=== PATIENT | male | born 1990 | race Caucasian/White ===

== ENCOUNTER 2023-10-08 08:11 | Emergency (ER) | payer OTHER ==
--- NOTE | 2023-10-08 08:31 | ED ---
Lower Extremity Injury HPI - General Chief Complaint: Extremity Injury, Lower Stated Complaint: Foot Injury Time Seen by Provider: 10/08/23 08:20 Source: patient, RN notes reviewed Mode of arrival: wheelchair Limitations: no limitations - History of Present Illness Initial Comments: 33-year-old male with no significant past medical history presents to ED with chief complaint of right ankle pain. States that he was at work yesterday, and slipped off of a rail car roughly 1 foot. Patient states after fall he was slightly able to bear weight and his increase since yesterday evening. At time of fall patient denies dizziness, lightheadedness. Patient has taken Motrin at home, last dose yesterday evening. - Related Data Allergies Allergy/AdvReac Type Severity Reaction Status Date / Time No Known Allergies Allergy Verified 10/08/23 08:20 Review of Systems ROS Statement: Those systems with pertinent positive or pertinent negative responses have been documented in the HPI. ROS Other: All systems not noted in ROS Statement are negative. Past Medical History Past Medical History: No Reported History Past Surgical History: No Surgical Hx Reported Past Psychological History: No Psychological Hx Reported Smoking Status: Never smoker Past Alcohol Use History: None Reported Past Drug Use History: None Reported General Exam Limitations: no limitations General appearance: alert, in no apparent distress Head exam: Present: atraumatic, normocephalic, normal inspection Eye exam: Present: normal appearance, PERRL, EOMI. Absent: scleral icterus, con junctival injection, periorbital swelling ENT exam: Present: normal exam, mucous membranes moist Neck exam: Present: normal inspection. Absent: tenderness, meningismus, lymphadenopathy Respiratory exam: Present: normal lung sounds bilaterally. Absent: respiratory distress, wheezes, rales, rhonchi, stridor Cardiovascular Exam: Present: regular rate, normal rhythm, normal heart sounds. Absent: systolic murmur, diastolic murmur, rubs, gallop, clicks GI/Abdominal exam: Present: soft, normal bowel sounds. Absent: distended, tenderness, guarding, rebound, rigid Right Lower Leg exam: Present: normal inspection, full ROM Ankle exam: Present: tenderness, swelling, ecchymosis. Absent: full ROM (limited plantar flexion and dorsiflexion), crepitus, erythema Foot/Toe exam: Present: normal inspection, full ROM. Absent: tenderness, swelling Neurovascular tendon exam: Absent: no vascular compromise, pulse deficit, abnormal cap refill, motor deficit, sensory deficit Back exam: Present: normal inspection Neurological exam: Present: alert, oriented X3, CN II-XII intact Psychiatric exam: Present: normal affect, normal mood Skin exam: Present: warm, dry, intact, normal color. Absent: rash Course Vital Signs 10/08/23 08:17 Temperature 98.4 F Pulse Rate 91 Respiratory 18 Rate Blood Pressure 127/85 O2 Sat by Pulse 97 Oximetry Procedures - Orthopedic Splinting/Casting Injury #1 Side: right Lower Extremity Injury Location: short leg, ankle Lower Extremity Immobilizer: posterior splint, Mundo wrap, synthetic pre-padded splint Other Orthopedic Equipment: crutches Medical Decision Making - Medical Decision Making Was pt. sent in by a medical professional or institution (, [place], [facility], urgent care, hospital, or [facility]...) When possible be specific @ -No Did you speak to anyone other than the patient for history (EMS, parent, family, police, friend...)? What history was obtained from this source @ -No Did you review nursing and triage notes (agree or disagree)? Why? @ -I reviewed and agree with nursing and triage notes Were old charts reviewed (outside hosp., previous admission, EMS record, old EKG, old radiological studies, urgent care reports/EKG's, [facility] records)? Report findings @ -No old charts were reviewed Differential Diagnosis (chest pain, altered mental status, abdominal pain women, abdominal pain men, vaginal bleeding, weakness, fever, dyspnea, syncope, headache, dizziness, GI bleed, back pain, seizure, CVA, palpatations, mental health, musculoskeletal)? @ -Differential Musculoskeletal: Muscular strain, contusion, ligament sprain, fracture, arthritis, septic arthritis, bursitis, cellulitis, muscle spasm, nerve compression, DVT, arterial occlusion, herpes zoster, electrolyte abnormality, tumor.... This is not meant to be in all inclusive list EKG interpreted by me (3pts min.). @ -None X-rays interpreted by me (1pt min.). @ -X-ray of right ankle and foot revealed circumferential soft tissue swelling. With some bony densities along the dorsal aspect of the navicular bone. No acute osseous abnormality seen CT interpreted by me (1pt min.). @ -None done U/S interpreted by me (1pt. min.). @ -None done What testing was considered but not performed or refused? (CT, X-rays, U/S, labs)? Why? @ -None What meds were considered but not given or refused? Why? @ -None Did you discuss the management of the patient with other professionals (celena caldwell i.e. , [place], [facility], lab, RT, psych nurse, medical social worker, manufacturing worker, teacher, employment security officer, wrapper caser)? Give summary @ -No Was smoking cessation discussed for >3mins.? @ -No Was critical care preformed (if so, how long)? @ -No Were there social determinants of health that impacted care today? How? (Homelessness, low income, unemployed, alcoholism, drug addiction, transportation, low edu. Level, literacy, decrease access to med. care, [facility]pc, rehab)? @ -No Was there de-escalation of care discussed even if they declined (Discuss DNR or withdrawal of care, Hospice)? DNR status @ -No What co-morbidities impacted this encounter? (DM, HTN, Smoking, COPD, CAD, Cancer, CVA, ARF, Chemo, Hep., AIDS, mental health diagnosis, sleep apnea, morbid obesity)? @ -None Was patient admitted / discharged? Hospital course, mention meds given and route, prescriptions, significant lab abnormalities, going to OR and other pertinent info. @ -33-year-old male presents with chief complaint of right ankle pain. Right ankle and foot x-ray circumferential soft tissue swelling, bony densities along the dorsal aspect of the navicular bone, No acute osseous abnormality seen. The patient's point tenderness across the area of concern on x-ray, patient was placed in a right ankle short leg splint. Patient was given orthopedic referral for follow-up, and instructed to call office on Tuesday for an appointment. Patient to continue with rest at home, rotate Tylenol and Motrin, ice area, and elevate affected ankle. Undiagnosed new problem with uncertain prognosis? @ -No Drug Therapy requiring intensive monitoring for toxicity (Heparin, Nitro, Insulin, Cardizem)? @ -No Were any procedures done? @ -No Diagnosis/symptom? @ -Ankle sprain Acute, or Chronic, or Acute on Chronic? @ -Acute Uncomplicated (without systemic symptoms) or Complicated (systemic symptoms)? @ -Uncomplicated Side effects of treatment? @ -No Exacerbation, Progression, or Severe Exacerbation? @ -No Poses a threat to life or bodily function? How? (Chest pain, [place], [place], pneumonia, PE, COPD, DKA, ARF, appy, cholecystitis, CVA, Diverticulitis, Homicidal, Suicidal, threat to staff... and all critical care pts) @ -No Disposition Clinical Impression: Right ankle sprain Narrative: Please return to the Emergency Department if symptoms worsen or any other concerns. follow-up with orthopedics, call office on Tuesday to make an appointment. Disposition: HOME SELF-CARE Condition: Good Instructions (If sedation given, give patient instructions): Ankle Sprain (ED) Is patient prescribed a controlled substance at d/c from ED?: No Referrals: None,Stated [Primary Care Provider] - 1-2 days Neena Carrasco, DO [Doctor of Osteopathic Medicine] - 1-2 days Time of Disposition: 09:35
[2023-10-08 08:34] VITALS: PULSE 91; TEMP 98.4
[2023-10-08] MEDS: KETOROLAC 15 MG/ML 1 ML VIAL IVP STA (08:39)
--- NOTE | 2023-10-08 09:20 | XR ---
EXAMINATION TYPE: XR ankle complete 3 views RT, XR foot complete 3 views RT DATE OF EXAM: 10/08/2023 COMPARISON: NONE HISTORY: 33-year-old male medial and lateral foot pain and swelling FINDINGS: Ankle: There is some generalized soft tissue swelling. Bony irregularity along the dorsal navicular. Ankle m ortise appears congruent with preservation of the distal tibiofibular overlap. Talar dome is intact. Small delineation to the Achilles tendon. Subtalar joint is aligned. Foot: Prominent dorsal hindfoot soft tissue swelling. Densities dorsal to the navicular on the lateral view as mentioned above. No other acute fracture, subluxation, dislocation seen. IMPRESSION: 1. Circumferential soft tissue swelling at the ankle and prominent soft tissue swelling along the dhaval eloisa hindfoot as well. 2. There are some bony densities along the dorsal aspect of the navicular on the lateral view. If the re was an injury and there is point tenderness here, findings suggest small capsular avulsion fractur es. 3. No other acute osseous abnormality seen.
[2023-10-08 10:14] VITALS: BP 126/80; RESP 12
== END 2023-10-08 10:03 | disposition home or self-care (01) ==
LOC: EC 08:11
DX: S93.401A Sprain of unspecified ligament of right ankle, initial encounter (principal); W17.89XA Other fall from one level to another, initial encounter; Y99.0 Civilian activity done for income or pay
CPT/HCPCS: 73610; 73630; 29515; 99283; 96374; J1885